=== PATIENT | male | born 1960 | race Caucasian/White ===

== ENCOUNTER → 2020-09-24 | Day surgery (SDC) | payer OTHER ==
[~2020-09-24] MED LIST: ASPIRIN CHEWABL81 MG PO; ATORVASTATIN CA10 MG PO; B COMPLEX1 EACH PO; GABAPENTIN300 MG PO; NEURONTIN300 MG PO; PERCOCET 5-3251 EACH PO; TYLENOL ARTHRI650 MG PO
== END | disposition home or self-care (01) ==
LOC: FAS 07:21
DX: Z12.11 Encounter for screening for malignant neoplasm of colon (principal); D12.8 Benign neoplasm of rectum; K57.30 Diverticulosis of large intestine without perforation or abscess without bleeding; E78.5 Hyperlipidemia, unspecified; Z86.010 Personal history of colon polyps; Z86.73 Personal history of transient ischemic attack (TIA), and cerebral infarction without residual deficits; Z87.891 Personal history of nicotine dependence; Z79.82 Long term (current) use of aspirin; Z79.899 Other long term (current) drug therapy
CPT/HCPCS: J2704; J7120